=== PATIENT | female | born 1985 | race Two or more races ===

== ENCOUNTER → 2018-07-24 | Emergency (ER) | payer OTHER ==
[~2018-07-24] VITALS: Ht 157.5 cm; Wt 95.3 kg
[~2018-07-24] MED LIST: AIRBORNE EFFER1 EACH PO; KETO10TA2 PO; PROMETH-CODEIN 65 ML PO; TESSALON PERLE100 M1 PO
== END | disposition home or self-care (01) ==
LOC: ER 20:52
DX: B34.9 Viral infection, unspecified (principal); E86.0 Dehydration

== ENCOUNTER 2021-10-27 06:34 | Emergency (ER) | payer OTHER ==
[~2021-10-27] VITALS: Ht 157.5 cm; Wt 95.7 kg
[2021-10-27] MEDS ORDERED: DICLOFENAC SODI75 MG PO (07:19)
[2021-10-27] MEDS ORDERED: NORFLEX100MG PO (07:20)
== END 2021-10-27 07:31 | disposition home or self-care (01) ==
LOC: ER 06:34
DX: M54.9 Dorsalgia, unspecified (principal)

== ENCOUNTER 2022-11-10 17:42 | Emergency (ER) | payer OTHER ==
[~2022-11-10] VITALS: Ht 157.5 cm; Wt 99.8 kg
[~2022-11-10 17:42] MED LIST changes: +DICLOFENAC SODI75 MG PO; +NORFLEX100MG PO
== END 2022-11-10 22:05 | disposition home or self-care (01) ==
LOC: ER 17:42
DX: M62.830 Muscle spasm of back (principal); M54.59 Other low back pain